=== PATIENT | female | born 1995 | race Caucasian/White ===

== ENCOUNTER 2017-12-25 20:59 | Emergency (ER) | payer BC, OTHER ==
--- NOTE | 2017-12-25 21:10 | EDPHY ---
H & P Time Seen by Provider: 12/25/17 21:09 HPI/ROS: Chief Complaint: Fever, nausea, vomiting HPI: 22-year-old woman presenting with 1 day of fever, body aches, nausea, vomiting. Patient vomited twice today. She has had general malaise. Chills at home. Patient states she had a fever earlier of 103. She did take some ibuprofen. Mild shortness of breath. No cough. Also took Compazine earlier, now feels very restless and agitated. No headache. No neck stiffness. No skin rash. Does have some mild sore throat. Is able swallow. No difficulty breathing. She did get a flu shot this year but also tested positive for influenza in July. ROS: 10 point Review of Systems is negative except as noted in the HPI. PMH: Attention deficit hyperactivity disorder Social History: No smoking, no alcohol, occasional marijuana Family History: non-contributory Physical Exam: Gen: Awake, Alert, No Distress, anxious appearing HEENT: Nose: no rhinorrhea Eyes: PERRLA, EOMI Mouth: Moist mucosa Neck: Supple, no JVD Chest: nontender, lungs clear to auscultation Heart: S1, S2 normal, no murmur Abd: Soft, non-tender, no guarding Back: no CVA tenderness, no midline tenderness Ext: no edema, non-tender Skin: no rash Neuro: CN II-XII intact, Sensation grossly intact, Strength 5/5 in bilateral upper and lower extremities Constitutional: Initial Vital Signs Temperature (C) 37.9 C 12/25/17 21:16 Heart Rate 108 H 12/25/17 21:16 Respiratory Rate 48 H 12/25/17 21:16 Blood Pressure 120/72 12/25/17 21:16 O2 Sat (%) 100 12/25/17 21:16 O2 Delivery Mode Room Air Allergies/Adverse Reactions: Penicillins Allergy (Verified 12/25/17 21:15) Home Medications: Medication Instructions Recorded Bcp 12/25/17 FLUoxetine [Prozac 20 MG (*)] 12/25/17 methYLPHENIDATE HCL [Ritalin 10mg 12/25/17 (*)] Medical Decision Making ED Course/Re-evaluation: Patient is improved after IV fluids antiemetics and a little bit of Ativan. She is tolerating p.o.. Urinalysis is negative. She has no other focal source of infection. Symptoms consistent with viral illness. Will discharge with primary care follow-up, return for any concerns. - Data Points Laboratory Results: 12/25/17 12/25/17 22:03 22:03 Urine Color YELLOW Urine Appearance CLEAR Urine pH 6.5 (5.0-7.5) Ur Specific [place] 1.020 (1.002-1.030) Urine Protein NEGATIVE (NEGATIVE) Urine Ketones NEGATIVE (NEGATIVE) Urine Blood TRACE H (NEGATIVE) Urine Nitrate NEGATIVE (NEGATIVE) Urine Bilirubin NEGATIVE (NEGATIVE) Urine Urobilinogen 0.2 EU EU (0.2-1.0) Ur Leukocyte Esterase NEGATIVE (NEGATIVE) Urine RBC 0-1 /hpf /hpf (0-3) Urine WBC 0-1 /hpf /hpf (0-3) Ur Epithelial Cells TRACE /lpf /lpf (NONE-1+) Urine Bacteria TRACE /hpf H /hpf (NONE SEEN) Urine Glucose NEGATIVE (NEGATIVE) Urine Test NEGATIVE Medications Given: Discontinued Medications Sodium Chloride (Ns) 1,000 mls @ 0 mls/hr IV ONCE ONE; Wide Open PRN Reason: Protocol Stop: 12/25/17 21:17 Last Admin: 12/25/17 21:25 Dose: 1,000 mls Lorazepam (Ativan Injection) 1 mg IVP EDNOW ONE Stop: 12/25/17 21:17 Last Admin: 12/25/17 21:25 Dose: 1 mg Ondansetron HCl (Zofran) 4 mg IVP EDNOW ONE Stop: 12/25/17 21:17 Last Admin: 12/25/17 21:25 Dose: 4 mg Departure - Departure Disposition: Home, Routine, Self-Care Clinical Impression: Viral syndrome Condition: Good Instructions: Viral Syndrome (ED) Additional Instructions: Follow up with primary care physician in 2-3 days for further evaluation. Alternate acetaminophen (1000 mg) with ibuprofen (400 mg) every 4 hours as needed for fevers, chills, aches or pain. Return to the emergency department for increasing fevers or chills, nausea vomiting, abdominal pain, headache, or any other concerns. Referrals: Balbina Bhakta MD [Primary Care Provider] - As per Instructions
[2017-12-25] MEDS ORDERED: LORazepam 2 MG/ML INJ IVP ONE (21:16)
[2017-12-25] MEDS ORDERED: ONDANSETRON 4 MG/2 ML VIAL IVP ONE (21:16)
[2017-12-25] MEDS ORDERED: NS 1,000 ML IV ONE (21:16)
[2017-12-25 22:08] VITALS: BP 115/80; PULSE 96; RESP 18; TEMP 99.7; O2SAT 95
== END 2017-12-25 22:45 | disposition home or self-care (01) ==
LOC: CED 20:59
DX: B34.9 Viral infection, unspecified (principal); E86.9 Volume depletion, unspecified
CPT/HCPCS: 81003-PO; 81015-PO; 81025-PO; 96374; J2060; J2405